=== PATIENT | female | born 1980 | race American Indian/Alaskan Native ===

== ENCOUNTER 2021-03-22 11:54 | Emergency (ER) | payer OTHER, MEDICAID ==
[2021-03-22 15:47] LABS: Alanine Aminotransferase 65 units/L (7-56); Albumin 3.8 g/dL (3.9-5); BUN/Creatinine Ratio 11; Blood Urea Nitrogen 9 mg/dL (7-17); Calcium 8.4 mg/dL (8.4-10.2); Hemolysis Index 21
[2021-03-22] MEDS ORDERED: SODIUM CHLORIDE 0.9% 1000 ML 1,000 ML IV ONE ×2 (15:54→21:02)
[2021-03-22] MEDS ORDERED: MECLIZINE 25 MG TAB PO ONE (15:54)
[2021-03-22 16:08] LABS: Eosinophils % (Auto) 0.1 % (0.0-4.3); Hematocrit 39.8 % (30.3-42.9); Hemoglobin 12.4 gm/dl (10.1-14.3); Mean Corpuscular HGB Conc 31 % (30-34); Mean Corpuscular Volume 76 fl (79-97); Monocytes # (Auto) 0.1 K/mm3 (0.0-0.8); Monocytes % (Auto) 3.7 % (0.0-7.3); Red Blood Count 5.25 M/mm3 (3.65-5.03); Red Cell Distribution Width 19.1 % (13.2-15.2)
[2021-03-22 16:11] LABS: Basophils % (Auto) 0.7 % (0.0-1.8); Lymphocytes # (Auto) 1.3 K/mm3 (1.2-5.4); Lymphocytes % (Auto) 41.6 % (13.4-35.0); Platelet Count 91 K/mm3 (140-440)
--- NOTE | 2021-03-22 16:22 | XRay Report ---
CHEST 2 VIEWS INDICATION / CLINICAL INFORMATION: sob,cough and rales. COMPARISON: None available. FINDINGS: SUPPORT DEVICES: None. HEART / MEDIASTINUM: No significant abnormality. LUNGS / PLEURA: There are patchy bilateral pulmonary opacities. ADDITIONAL FINDINGS: No significant additional findings. IMPRESSION: 1. Patchy bilateral pulmonary opacities likely indicating viral pneumonia. Signer Name: Aric Alaniz MD Signed: 03/22/2021 4:18 PM Workstation Name: [id number]
[2021-03-22] MEDS ORDERED: AZITHROMYCIN/NS 500 MG/250 ML 500 MG/250 ML BAG IV ONE (17:09)
[2021-03-22] MEDS ORDERED: dexAMETHasone 4 MG/ML VIAL IV ONE (17:39)
--- NOTE | 2021-03-22 18:01 | Emergency Department Report ---
<TOI MARTINS - Last Filed: 03/22/21 21:37> - General Chief Complaint: Dizziness Stated Complaint: DIZZINESS/BODY ACHES/CONGESTION Time Seen by Provider: 03/22/21 15:30 Source: patient Mode of arrival: Ambulatory Limitations: No Limitations - History of Present Illness Initial Comments: This is a 47-year-old female nontoxic, well nourished in appearance, no acute signs of distress presents to the ED with c/o of productive cough, subjective fever, chills, body aches, SOB, dizziness, rhinorrhea, nasal congestion x several days. Patient denies any headache or head trauma. Patient stated the dizziness is worsened with position change. Patient describes productive cough as yellow mucus production. Patient denies any sick contacts. Patient denies being vaccinated for COVID. Patient denies any recent travels, long car, recent hospital stays. Patient denies any calf pain or calf tenderness. Patient denies any numbness, tingling, headache, stiff neck, chest pain, shortness of breathe, numbness or tingling, nausea, vomiting, hemoptysis, numbness, tingling. Denies any visual changes or blurry vision. Denies any drug allergies. MD Complaint: cough, rhinorrhea, nasal congestion, other (dizziness) -: days(s) Severity: mild Severity scale (0 -10): 3 Quality: aching Consistency: constant Improves With: nothing Worsens With: nothing Associated Symptoms: fever, chills, rhinorrhea, nasal congestion, cough, shortne ss of breath. denies: myalgias, diaphoresis, headache, sore throat, stiff neck, chest pain, abdominal pain, nausea, vomiting, diarrhea, dysuria, rash, confusion, right sweats, weight loss, epistaxis, hoarseness, ear pain Treatments Prior to Arrival: none - Related Data Home Medications Medication Instructions Recorded Confirmed Last Taken Losartan/Hydrochlorothiazide 1 each PO QDAY 03/25/21 03/25/21 Unknown [Losartan-Hctz 100-25 mg Tab] Allergies Allergy/AdvReac Type Severity Reaction Status Date / Time No Known Allergies Allergy Verified 04/05/16 07:50 ED Review of Systems Comment: All other systems reviewed and negative Constitutional: chills, fever Eyes: denies: eye pain, eye discharge, vision change ENT: congestion. denies: ear pain, throat pain Respiratory: cough, shortness of breath. denies: wheezing Cardiovascular: denies: chest pain, palpitations Endocrine: no symptoms reported Gastrointestinal: denies: abdominal pain, nausea, diarrhea Genitourinary: denies: urgency, dysuria, discharge Musculoskeletal: denies: back pain, joint swelling, arthralgia Skin: denies: rash, lesions Neurological: other (dizziness). denies: headache, weakness, numbness, pare sthesias, confusion, abnormal gait, vertigo Psychiatric: denies: anxiety, depression Hematological/Lymphatic: denies: easy bleeding, easy bruising ED Past Medical Hx - Past Medical History Previous Medical History?: Yes Hx Hypertension: Yes Hx Congestive Heart Failure: No Hx Diabetes: No Hx Deep Vein Thrombosis: No Hx Renal Disease: No Hx Sickle Cell Disease: No Hx Seizures: No Hx Asthma: No Hx COPD: No Hx HIV: No - Surgical History Past Surgical History?: No - Social History Smoking Status: Never Smoker - Medications Home Medications: Home Medications Medication Instructions Recorded Confirmed Last Taken Type Losartan/Hydrochlorothiazide 1 each PO QDAY 03/25/21 03/25/21 Unknown History [Losartan-Hctz 100-25 mg Tab] ED Physical Exam - General Limitations: No Limitations General appearance: alert, in no apparent distress - Head Head exam: Present: atraumatic, normocephalic - Eye Eye exam: Present: normal appearance, PERRL, EOMI - ENT ENT exam: Present: normal exam, normal orophraynx - Neck Neck exam: Present: normal inspection, full ROM. Absent: tenderness, meningismus, lymphadenopathy - Expanded Neck Exam Expanded Neck exam: Absent: tenderness, midline deformity, anterior neck swelling, thyroid mass, carotid bruit, tracheal deviation - Respiratory Respiratory exam: Present: normal lung sounds bilaterally. Absent: respiratory distress, wheezes, rales, rhonchi, stridor, chest wall tenderness, accessory muscle use, decreased breath sounds, prolonged expiratory - Cardiovascular Cardiovascular Exam: Present: regular rate, normal rhythm, normal heart sounds. Absent: irregular rhythm, systolic murmur, diastolic murmur, rubs, gallop - GI/Abdominal GI/Abdominal exam: Present: soft, normal bowel sounds. Absent: distended, guarding, rebound, rigid, diminished bowel sounds - Extremities Exam Extremities exam: Present: normal inspection, full ROM, normal capillary refill. Absent: tenderness - Back Exam Back exam: Present: normal inspection, full ROM. Absent: tenderness, CVA tenderness (R), CVA tenderness (L), muscle spasm, paraspinal tenderness, vertebral tenderness, rash noted - Neurological Exam Neurological exam: Present: alert, oriented X3, normal gait - Expanded Neurological Exam Expanded Patient oriented to: Present: person, place, time Cranial nerves: EOM's Intact: Normal, Facial Sensation: Normal Cerebellar function: Finger to Nose: Normal Upper motor neuron: Pronator Drift: Normal, Sensory Extinction: Normal Motor strength exam: RUE: 5, LUE: 5, RLE: 5, LLE: 5 Best Eye Response ([place]): (4) open spontaneously Best Motor Response ([place]): (6) obeys commands Best Verbal Response ([place]): (5) oriented Sunny Total: 15 - Psychiatric Psychiatric exam: Present: normal affect, normal mood - Skin Skin exam: Present: warm, dry, intact, normal color. Absent: rash ED Course - Reevaluation(s) Reevaluation #1: 03/22/21 18:05 Patient is speaking in full sentences with no signs of distress noted. Reevaluation #2: 03/22/21 21:16 Patient has a fever and tachycardia. Will order Tylenol and Normal saline. Will reexamine patient after treatment. Patient otherwise patient is stable. - Consultations Consultation #1: 03/22/21 18:05 Patient has been consulted with Monroe Boyce about patient history, physical exam, and labs/imaging results and agrees to the ED plan of care and discharged follow-up. Consultation #2: 03/22/21 21:18 At this time, patient is signed out to Dr. Ramon for further evaluation, treatment and appropriate disposition. ED Medical Decision Making - Lab Data Result diagrams: 03/22/21 14:58 03/22/21 14:58 Lab Results 03/22/21 03/22/21 03/22/21 Range/Units 14:58 14:58 14:58 WBC 3.1 L (4.5-11.0) K/mm3 RBC 5.25 H (3.65-5.03) M/mm3 Hgb 12.4 (10.1-14.3) gm/dl Hct 39.8 (30.3-42.9) % MCV 76 L (79-97) fl MCH 24 L (28-32) pg MCHC 31 (30-34) % RDW 19.1 H (13.2-15.2) % Plt Count 91 L (140-440) K/mm3 Lymph % (Auto) 41.6 H (13.4-35.0) % [place] % (Auto) 3.7 (0.0-7.3) % Eos % (Auto) 0.1 (0.0-4.3) % Baso % (Auto) 0.7 (0.0-1.8) % Lymph # (Auto) 1.3 (1.2-5.4) K/mm3 [place] # (Auto) 0.1 (0.0-0.8) K/mm3 Eos # (Auto) 0.0 (0.0-0.4) K/mm3 Baso # (Auto) 0.0 (0.0-0.1) K/mm3 Seg Neutrophils % 53.9 (40.0-70.0) % Seg Neutrophils # 1.6 L (1.8-7.7) K/mm3 Sodium 137 (137-145) mmol/L Potassium 4.3 (3.6-5.0) mmol/L Chloride 96.3 L (98-107) mmol/L Carbon Dioxide 27 (22-30) mmol/L Anion Gap 18 mmol/L BUN 9 (7-17) mg/dL Creatinine 0.8 (0.6-1.2) mg/dL Estimated GFR > 60 ml/min BUN/Creatinine Ratio 11 % Glucose 88 (65-100) mg/dL Calcium 8.4 (8.4-10.2) mg/dL Total Bilirubin 0.30 (0.1-1.2) mg/dL AST 151 H (5-40) units/L ALT 65 H (7-56) units/L Alkaline Phosphatase 167 H (35-129) units/L Total Protein 8.0 (6.3-8.2) g/dL Albumin 3.8 L (3.9-5) g/dL Albumin/Globulin Ratio 0.9 % HCG, Quant < 2 (0-4) mIU/mL - Radiology Data [facility] [address] [place] [address] XRay Report Signed Patient: RICARDO DECKER MR#: [id number] : 1980 Acct:[id number] Age/Sex: 40 / F ADM Date: 03/22/21 Loc: ED Attending Dr: Ordering Physician: DEEJAY SAEED Date of Service: 03/22/21 Procedure(s): XR chest routine 2V Accession Number(s): [id number] cc: DEEJAY GUAJARDO Fluoro Time In Minutes: CHEST 2 VIEWS INDICATION / CLINICAL INFORMATION: sob,cough and rales. COMPARISON: None available. FINDINGS: SUPPORT DEVICES: None. HEART / MEDIASTINUM: No significant abnormality. LUNGS / PLEURA: There are patchy bilateral pulmonary opacities. ADDITIONAL FINDINGS: No significant additional findings. IMPRESSION: 1. Patchy bilateral pulmonary opacities likely indicating viral pneumonia. Signer Name: Aric Alaniz MD Signed: 03/22/2021 4:18 PM Workstation Name: [id number] Transcribed By: HONEY Dictated By: Aric Alaniz MD Electronically Authenticated By: Aric Alaniz MD Signed Date/Time: 03/22/211617 DD/ 16 TD/TT: [facility] [address] [place] [address] Cat Scan Report Signed Patient: RICARDO DECKER MR#: [id number] : 1980 Acct:[id number] Age/Sex: 40 / F ADM Date: 03/22/21 Loc: ED Attending Dr: Ordering Physician: TOI MARTINS NP Date of Service: 03/22/21 Procedure(s): CT angio chest Accession Number(s): [id number] cc: TOI MARTINS NP CTA CHEST WITH CONTRAST INDICATION / CLINICAL INFORMATION: SOB, tachycardia, + PNA. TECHNIQUE: Axial CT images were obtained through the chest after injection of 100 cc of Omnipaque 350 IV contrast. 3 plane MIP and/or 3D reconstructions were produced. All CT scans at this location are performed using CT dose reduction for ALARA by means of automated exposure control. COMPARISON: None available. FINDINGS: Study is limited by breathing motion artifact PULMONARY ARTERIES: Within the limits of this exam no pulmonary embolus is identified. THORACIC AORTA: No significant abnormality. HEART: No significant abnormality. CORONARY ARTERY CALCIFICATION: None. MEDIASTINUM / RAMIRO: No significant abnormality. PLEURA: No pleural effusion. No pneumothorax. LUNGS: There are bilateral airspace opacities groundglass opacities characteristic of an atypical or viral pneumonia ADDITIONAL FINDINGS: None. UPPER ABDOMEN: No acute findings. SKELETAL STRUCTURES: No acute abnormality IMPRESSION: 1. Within the limits of this examination no pulmonary embolus is seen. 2. There are bilateral diffuse pulmonary opacities characteristic of an atypical or viral pneumonia Signer Name: Escobar Solano MD Signed: 03/22/2021 7:21 PM Workstation Name: [id number] Transcribed By: Dictated By: Escobar Solano MD Electronically Authenticated By: Escobar Solano MD Signed Date/Time: 03/22/211920 DD/ 16 TD/TT: - Medical Decision Making This is a 40-year-old female that presents with suspected Covid with pneumonia. Patient is stable and was examined by me. Chest x-ray has been obtained and dictated by radiologist. Due to symptoms of hypoexmia and tachycardia with SOB symptoms a CTA has been obtaiend with no PE. Patient is notified of x-ray results with no questions noted. Patient does meet clinical concerns of COVID-19 and patient was instructed and educated on signs and symptoms and to self quarantine and seek medical attention as soon as possible if symptoms worse. Patient received azith in the eD IV. Patient signed out to Dr. Ramon for further evaluation and repeat vitals. - Differential Diagnosis PE, COVID, PNA, bronchitis ED Disposition Clinical Impression: Suspected COVID-19 virus infection, Elevated liver enzymes Disposition: 01 HOME / SELF CARE / HOMELESS Condition: Stable Instructions: COVID-19: How to Protect Yourself and Others - CDC, COVID-19, Community-Acquired Pneumonia, Adult, Bacterial Pneumonia (ED) Additional Instructions: Given your symptoms and this current pandemic, there is concern that you may have contracted COVID-19. Unfortunately I am not able to test you for COVID-19 at this time. Please isolate/quarantine yourself away from anybody who is not vaccinated, elderly, immunocompromised or chronically ill/debilitated. Please seek outpatient COVID-19 testing. This can be done at some primary care offices, some urgent cares, and there should be a listing of testing facilities through the [place] Department of health. Your labs show elevated liver enzymes. Because of this, please avoid any alcohol use or Tylenol/acetaminophen use. You can use ibuprofen every 4-6 hours, using dosing on the back of the bottle, as needed for any fever or discomfort. Increase your oral rehydration. Take all medications as prescribed. Return to the emergency department with any worsening of your symptoms, new or concerning symptoms not addressed during this current emergency department visit, or with any acute distress. Referrals: PRIMARY CAREMD [Primary Care Provider] - 3-5 Days Forms: Work/School Release Form(ED) <ESA RAMON - Last Filed: 05/17/21 14:41> ED Review of Systems ROS: Stated complaint: DIZZINESS/BODY ACHES/CONGESTION Other details as noted in HPI ED Course Vital Signs 03/22/21 03/22/21 03/22/21 12:17 18:28 18:30 Temperature 99.0 F Pulse Rate 103 H 112 H 116 H Respiratory 18 16 Rate Blood Pressure 139/91 138/84 132/91 [Right] O2 Sat by Pulse 95 98 Oximetry 03/22/21 03/22/21 03/22/21 18:31 20:22 22:39 Temperature 102.0 F H 100.0 F H Pulse Rate 112 H 112 H 102 H Respiratory 16 18 17 Rate Blood Pressure 146/96 123/80 143/82 [Right] O2 Sat by Pulse 98 96 96 Oximetry 03/22/21 23:20 Temperature Pulse Rate 92 H Respiratory 17 Rate Blood Pressure [Right] O2 Sat by Pulse 97 Oximetry ED Medical Decision Making - Lab Data Result diagrams: 03/22/21 14:58 03/22/21 14:58 - Medical Decision Making The patient was seen in conjunction with DEEJAY Martins. The patient presented with URI symptoms and the overall clinical picture, as well as Xray and lab studies, appears consistent with Covid 19. We did not have POC Covid 19 testing. The patient had a negative CTA chest. XR of the chest shows b/l opacities consistent with an atypical viral pneumonia we see with Covid 19. There may have been some trransient hypoxia while on the monitor, but she did not have any hypoxia with vitals rechecks, nor with the ambulatory pulse ox check. She was discharged home to return to the closest ED with any worsening of her symptoms or any acute distress. Critical care attestation.: If time is entered above; I have spent that time in minutes in the direct care of this critically ill patient, excluding procedure time. ED Disposition Is pt being admited?: No
--- NOTE | 2021-03-22 19:25 | Cat Scan Report ---
CTA CHEST WITH CONTRAST INDICATION / CLINICAL INFORMATION: SOB, tachycardia, + PNA. TECHNIQUE: Axial CT images were obtained through the chest after injection of 100 cc of Omnipaque 350 IV contrast. 3 plane MIP and/or 3D reconstructions were produced. All CT scans at this location are performed using CT dose reduction for ALARA by means of automated exposure control. COMPARISON: None available. FINDINGS: Study is limited by breathing motion artifact PULMONARY ARTERIES: Within the limits of this exam no pulmonary embolus is identified. THORACIC AORTA: No significant abnormality. HEART: No significant abnormality. CORONARY ARTERY CALCIFICATION: None. MEDIASTINUM / RAMIRO: No significant abnormality. PLEURA: No pleural effusion. No pneumothorax. LUNGS: There are bilateral airspace opacities groundglass opacities characteristic of an atypical or viral pneumonia ADDITIONAL FINDINGS: None. UPPER ABDOMEN: No acute findings. SKELETAL STRUCTURES: No acute abnormality IMPRESSION: 1. Within the limits of this examination no pulmonary embolus is seen. 2. There are bilateral diffuse pulmonary opacities characteristic of an atypical or viral pneumonia Signer Name: Escobar Solano MD Signed: 03/22/2021 7:21 PM Workstation Name: [id number]
[2021-03-22] MEDS ORDERED: ACETAMINOPHEN 500 MG TAB PO ONE (21:01)
[2021-03-22 22:40] VITALS: BP 143/82
--- NOTE | 2021-03-23 10:11 | Electrocardiograph Report ---
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
== END 2021-03-22 23:20 | disposition home or self-care (01) ==
LOC: ED 11:54
DX: J18.9 Pneumonia, unspecified organism (principal); I10 Essential (primary) hypertension
CPT/HCPCS: 36415; 71046; 71275; 80053; 84702; 85025; 93005; 96361; 96365; 96366; 96375; 99284; J0456; J1100; J7030; Q9967

== ENCOUNTER 2021-03-25 04:08 | Inpatient (IN) | payer BC, MEDICAID, OTHER ==
[2021-03-29 14:22] VITALS: BP 154/97
== END 2021-03-29 16:00 | disposition home or self-care (01) | DRG 177 ==
LOC: ED 04:08 → 3A 08:24
PROVIDERS: ADMIT Internal Medicine; ATTEND Internal Medicine
PROC: XW033E5 Introduction of Remdesivir Anti-infective into Peripheral Vein, Percutaneous Approach, New Technology Group 5 (ICD-10-PCS; principal; 2021-03-25)
DX: U07.1 COVID-19 (principal); J96.01 Acute respiratory failure with hypoxia; J12.82 Pneumonia due to coronavirus disease 2019; Z68.42 Body mass index [BMI] 45.0-49.9, adult; R74.8 Abnormal levels of other serum enzymes; E66.01 Morbid (severe) obesity due to excess calories; I10 Essential (primary) hypertension; R74.01 Elevation of levels of liver transaminase levels; G47.33 Obstructive sleep apnea (adult) (pediatric); Z79.899 Other long term (current) drug therapy
CPT/HCPCS: 36415; 71045; 71046; 71275; 80053; 82550; 82728; 83615; 83735; 84145; 84484; 84702; 85025; 85379; 85610; 86140; 93005; 94760; 96361; 96365; 96366; 96375; 99284; G0378; C9113; J0456; J0696; J1100; J2405; J7030; J7050; J7120; Q9967; U0003